=== PATIENT | female | born 1950 | race Caucasian/White ===

== ENCOUNTER 2019-09-19 06:28 | Day surgery (SDC) | payer MEDICARE, BC ==
[2019-09-19] MEDS ORDERED: Sodium Chloride 0.9% 1,000 ML IV SCH (07:00)
[2019-09-19] MEDS ORDERED: fentaNYL 100 MCG/2 ML SDV ONE (07:19)
[2019-09-19] MEDS ORDERED: Propofol 200 MG/20 ML SDV ONE (07:19)
[2019-09-19] MEDS ORDERED: Midazolam 1 MG/ML 2 ML SDV ONE (07:19)
--- NOTE | 2019-09-19 13:15 | OR ---
DATE OF PROCEDURE: 09/19/2019 SURGEON: Heber Baker MD PROCEDURE: Colonoscopy. FINDINGS: Normal colonoscopy COMPLICATIONS: None. SKIN PASS OPERATOR: None. ANESTHESIA: MAC. RISKS: Risks, benefits, alternatives, and limitations including, but not limited to infection, bleeding, and perforation were explained to the patient, who wished to proceed. PROCEDURE IN DETAIL: The patient was placed in left lateral decubitus position. Digital rectal exam was performed. Small external hemorrhoids. Scope was introduced and advanced atraumatically to the ileocecal valve. A photo was taken. Scope was brought back through the ascending, transverse, descending colon, and retroflexed. No evidence of old or new blood. No masses. No polyps. No diverticulosis. No colitis. No abnormalities on retroflexion. The patient tolerated the procedure well. Heber Baker MD /[id number]
== END 2019-09-19 09:21 | disposition home or self-care (01) ==
LOC: JP.SDS 06:28
PROVIDERS: ATTEND Surgery
DX: Z12.11 Encounter for screening for malignant neoplasm of colon (principal); K64.4 Residual hemorrhoidal skin tags; Z88.8 Allergy status to other drugs, medicaments and biological substances; Z91.012 Allergy to eggs; Z87.891 Personal history of nicotine dependence; Z86.010 Personal history of colon polyps
CPT/HCPCS: G0105; J2250; J2704; J3010; J7030

== ENCOUNTER 2022-08-02 14:03 | Emergency (ER) | payer MEDICARE, BC ==
[2022-08-02] MEDS ORDERED: Albuterol/Ipratropium 3.0-0.5 MG/3 ML Neb Soln NEB ONE (14:37)
== END 2022-08-02 16:45 | disposition home or self-care (01) ==
LOC: JP.ED 14:03
DX: J45.20 Mild intermittent asthma, uncomplicated (principal); Z88.0 Allergy status to penicillin; Z91.012 Allergy to eggs; Z88.8 Allergy status to other drugs, medicaments and biological substances; Z79.899 Other long term (current) drug therapy; Z90.49 Acquired absence of other specified parts of digestive tract; Z87.891 Personal history of nicotine dependence
CPT/HCPCS: 36415; 71046; 71046-26; 80048; 84484; 85025; 94640; 99285; J7620

== ENCOUNTER 2024-05-15 18:24 | Emergency (ER) | payer MEDICARE, BC ==
[2024-05-15 19:43] LABS: APPEARANCE,URINE SLIGHTLY CLOUDY (CLEAR); BILIRUBIN,URINE SMALL (NEGATIVE); COLOR,URINE YELLOW (YELLOW); GLUCOSE,URINE NEGATIVE (NEGATIVE); KETONES,URINE 15 mg/dL (NEGATIVE); LEUKOCYTE ESTERASE,URINE NEGATIVE (NEGATIVE); NITRITE,URINE NEGATIVE (NEGATIVE); OCCULT BLOOD,URINE NEGATIVE (NEGATIVE); PROTEIN,URINE 100 mg/dL (NEGATIVE); UROBILINOGEN,URINE 0.2 EU/dL (0.2-1.0)
[2024-05-15 19:54] LABS: BASOPHILS ABSOLUTE AUTO 0.09 K/uL (0.00-0.10); BASOPHILS PERCENT AUTO 0.2 % (0.1-1.3); EOSINOPHILS ABSOLUTE AUTO 0.03 K/uL (0.00-0.40); EOSINOPHILS PERCENT AUTO 0.1 % (0.0-5.4); HEMATOCRIT 41.5 % (34.3-46.0); HEMOGLOBIN 14.7 g/dL (11.2-15.5); IMMATURE GRAN PERCENT AUTO 1.1 % (0.0-0.7); LYMPHOCYTES ABSOLUTE AUTO 0.61 K/uL (0.8-3.3); LYMPHOCYTES PERCENT AUTO 1.7 % (11.4-47.7); MEAN CORPUSCULAR HEMOGLOBIN 31.7 pg (31.6-35.5); MEAN CORPUSCULAR HGB CONC 35.4 g/dL (31.6-35.5); MEAN CORPUSCULAR VOLUME 89.4 fL (81.4-99.0); MONOCYTES ABSOLUTE AUTO 0.99 K/uL (0.20-0.90); MONOCYTES PERCENT AUTO 2.7 % (3.3-12.6); NEUTROPHILS ABSOLUTE AUTO 34.48 K/uL (1.0-7.6); NEUTROPHILS PERCENT AUTO 94.2 % (40.0-78.1); PLATELET COUNT,PLT 275 K/uL (130-375); RED BLOOD CELL COUNT 4.64 M/uL (3.77-5.24)
[2024-05-15 20:05] LABS: AMORPHOUS SEDIMENT,URINE MODERATE; BACTERIA,URINE FEW; EPITHELIAL CELLS,URINE MANY; MUCUS,URINE MANY; RBC,URINE 0-5 (0-5); WBC,URINE 0-5 (0-5)
[2024-05-15 20:13] LABS: WHITE BLOOD CELL COUNT,WBC 36.6 K/uL (3.2-11.0)
[2024-05-15 20:14] LABS: A/G RATIO 1.1 (1.2-2.2); ALANINE AMINOTRANSFERASE,ALT 31 U/L (12-78); ALBUMIN 3.9 g/dL (3.4-5.0); ALKALINE PHOSPHATASE 85 U/L (46-116); ASPARTATE AMNIOTRANSFERASE,AST 25 U/L (15-37); BILIRUBIN TOTAL 0.5 mg/dL (0.2-1.0); BLOOD UREA NITROGEN,BUN 27 mg/dL (7-18); CALCIUM 9.5 mg/dL (8.5-10.1); CARBON DIOXIDE,CO2 27 mmol/L (21-32); CHLORIDE,CL 99 mmol/L (100-108); CREATININE 1.5 mg/dL (0.6-1.0); EST CRCL DRUG DOSING (CG) 25.21 mL/min; ESTIMATED GFR 37 mL/min (>60); GLUCOSE RANDOM 135 mg/dL (74-106); POTASSIUM,K 3.4 mmol/L (3.6-5.2); PROTEIN TOTAL,TP 7.3 g/dL (6.4-8.2); SODIUM,NA 137 mmol/L (140-148)
[2024-05-15 20:15] LABS: ANION GAP 14.4 mmol/L (5.0-14.0)
[2024-05-15] MEDS: Sodium Chloride 0.9% 1,000 ML IV SCH ×2 (20:28→22:37)
[2024-05-15] MEDS: Sodium Chloride 0.9% 80 ML IV SCH (20:47)
[2024-05-15] MEDS: Iopamidol 612 MG/ML 100 ML Bottle IV SCH (20:48)
[2024-05-15] MEDS ORDERED: Acetaminophen 500 MG Tab PO ONE (22:34)
[2024-05-15] MEDS ORDERED: Ketorolac 15 MG/ML SDV IVPUSH ONE (22:34)
[2024-05-15] MEDS: Ondansetron 4 MG/2 ML SDV IVPUSH ONE (22:47)
[2024-05-16 00:22] LABS: BASOPHILS ABSOLUTE AUTO 0.05 K/uL (0.00-0.10); BASOPHILS PERCENT AUTO 0.2 % (0.1-1.3); EOSINOPHILS ABSOLUTE AUTO 0.05 K/uL (0.00-0.40); EOSINOPHILS PERCENT AUTO 0.2 % (0.0-5.4); HEMATOCRIT 33.5 % (34.3-46.0); HEMOGLOBIN 11.8 g/dL (11.2-15.5); IMMATURE GRAN ABSOLUTE AUTO 0.17 K/uL (0.00-0.23); IMMATURE GRAN PERCENT AUTO 0.7 % (0.0-0.7); LYMPHOCYTES ABSOLUTE AUTO 1.62 K/uL (0.8-3.3); LYMPHOCYTES PERCENT AUTO 6.8 % (11.4-47.7); MEAN CORPUSCULAR HEMOGLOBIN 31.9 pg (31.6-35.5); MEAN CORPUSCULAR HGB CONC 35.2 g/dL (31.6-35.5); MEAN CORPUSCULAR VOLUME 90.5 fL (81.4-99.0); MONOCYTES ABSOLUTE AUTO 0.98 K/uL (0.20-0.90); MONOCYTES PERCENT AUTO 4.1 % (3.3-12.6); NEUTROPHILS ABSOLUTE AUTO 21.05 K/uL (1.0-7.6); PLATELET COUNT,PLT 224 K/uL (130-375); WHITE BLOOD CELL COUNT,WBC 23.9 K/uL (3.2-11.0)
== END 2024-05-16 01:49 | disposition home or self-care (01) ==
LOC: JP.ED 18:24
DX: K52.9 Noninfective gastroenteritis and colitis, unspecified (principal); Z91.012 Allergy to eggs; Z88.0 Allergy status to penicillin; Z88.8 Allergy status to other drugs, medicaments and biological substances; Z79.899 Other long term (current) drug therapy; Z90.49 Acquired absence of other specified parts of digestive tract; Z87.891 Personal history of nicotine dependence
CPT/HCPCS: 36415; 74177; 80053; 81001; 83690; 85025; 87493; 96361; 96374; 99284; J2405; J7030; Q9967; 99283